=== PATIENT | male | born 1960 | race Caucasian/White ===

== ENCOUNTER 2021-06-20 13:48 | Outpatient (CLI) | payer BC ==
[2021-06-20 14:32] LABS: #Basophils 0.1 10x3/uL (0.0-0.2); #Eosinphils 0.4 10x3/uL (0.0-0.5); #Monocytes 0.8 10x3/uL (0.0-1.1); #Neutrophils 4.3 10x3/uL (1.5-8.4); %Basophils 1.4 % (0.0-2.0); %Eosinophils 4.4 % (0.0-6.0); %Lymphocytes 34.5 % (18.0-47.0); %Monocytes 9.3 % (0.0-10.0); %Neutrophils 49.9 % (40.0-75.0); Hemoglobin 15.9 g/dL (13.5-17.5); Mean Corpuscular HGB CONC 32.9 g/dL (32.0-36.0); Mean Corpuscular Hemoglobin 30.8 pg (27.0-33.0); Mean Corpuscular Volume 93.6 fl (81.2-95.1); Mean Platelet Volume 9.6 fl (7.4-10.4); Platelet Count 273 10x3/uL (150-450); Red Blood Cell (RBC) Count 5.17 10x6/uL (4.32-5.72); White Blood Cell (WBC) Count 8.5 10x3/uL (3.5-10.5)
[2021-06-20 15:10] LABS: Anion Gap 13 mmol/L (10-20); BUN (Urea Nitrogen) 17 mg/dL (8.4-25.7); Calc. Creatinine Clearance 0 mL/min (70-130); Calcium 9.9 mg/dL (7.8-10.44); Carbon Dioxide 29 mmol/L (22-29); Chloride 104 mmol/L (98-107); Glucose 108 mg/dL (70-105); Potassium 4.7 mmol/L (3.5-5.1); Sodium 141 mmol/L (136-145)
[2021-06-20 23:50] LABS: SARS-CoV-2 PCR by NAA Not Detected (NotDetected)
== END 2021-06-20 13:49 | disposition home or self-care (01) ==
LOC: LABBT 13:48
PROVIDERS: ATTEND Orthopaedic Surgery
DX: Z01.818 Encounter for other preprocedural examination (principal); M17.11 Unilateral primary osteoarthritis, right knee; Z20.822 Contact with and (suspected) exposure to COVID-19
CPT/HCPCS: 80048; 85025; 87081; 93005; 93010; U0003; U0005

== ENCOUNTER 2021-06-25 06:29 | Day surgery (SDC) | payer BC ==
[2021-06-14 13:02] VITALS: BMI 26.5
[2021-06-25] MEDS ORDERED: Sodium Chloride 0.9% 100 ML ONE (07:17)
[2021-06-25] MEDS ORDERED: Tranexamic Acid 1,000 MG/10 ML VIAL ONE (07:17)
[2021-06-25] MEDS ORDERED: Vancomycin 1.5 GRAM/300 ML BAG 1.5 GM in Premix Bag 1 BAG IVPB SCH (07:30)
[2021-06-25] MEDS ORDERED: Midazolam HCl 2 mg/2 ml Vial ONE (08:17)
[2021-06-25] MEDS ORDERED: Fentanyl 100 MCG/2 ML VIAL ONE ×5 (08:17→12:55)
[2021-06-25] MEDS ORDERED: Lidocaine 1% (PF) 30 ML VIAL ONE (08:18)
[2021-06-25] MEDS ORDERED: Promethazine HCl 25 MG/ML VIAL IM PRN ×2 (08:54→10:15)
[2021-06-25] MEDS ORDERED: Zolpidem Tartrate 5 MG TAB PO PRN ×2 (08:54→10:15)
[2021-06-25] MEDS ORDERED: Acetaminophen 325 MG TAB PO PRN (08:54)
[2021-06-25] MEDS ORDERED: Ondansetron PF 4 MG/2 ML Vial IVP PRN ×2 (08:54→10:15)
[2021-06-25] MEDS ORDERED: HYDROcodone/Acetaminophen 10/325 mg Tablet PO PRN ×4 (08:54→10:15)
[2021-06-25] MEDS ORDERED: diphenhydrAMINE 25 MG CAP PO PRN (08:54)
[2021-06-25] MEDS ORDERED: Bupivacaine PF 0.5% 30 ML VIAL ONE (08:56)
[2021-06-25] MEDS ORDERED: ceFAZolin 2 GM/Dextrose 50 ML IVPB ONE (09:11)
[2021-06-25] MEDS ORDERED: PROPOFOL 200 MG/20 ML VIAL ONE (09:24)
[2021-06-25] MEDS ORDERED: Ketorolac Tromethamine 30 MG/ML VIAL ONE (09:24)
[2021-06-25] MEDS ORDERED: Lidocaine 1% PF 5 ML VIAL ONE (09:24)
[2021-06-25] MEDS ORDERED: Ondansetron PF 4 MG/2 ML Vial ONE (09:24)
[2021-06-25] MEDS ORDERED: Bupivacaine HCl 0.5%/Epinephrine 1:200,000/PF 30 ml Vial ONE (09:24)
[2021-06-25] MEDS ORDERED: Labetalol HCl 100 MG/20 ML VIAL ONE (09:24)
[2021-06-25] MEDS ORDERED: Fentanyl 100 MCG/2 ML VIAL IV PRN (10:09)
[2021-06-25] MEDS ORDERED: Ropivacaine 0.2% 550 ML 550 ML NERVE BLCK SCH (10:15)
[2021-06-25] MEDS ORDERED: traMADol HCl 50 MG TAB PO PRN ×2 (10:15)
[2021-06-25] MEDS ORDERED: Ondansetron HCl/PF 4 MG/2 ML Vial IVP PRN (11:17)
[2021-06-25] MEDS ORDERED: hydrALAZINE 20 MG/ML VIAL ONE (11:55)
[2021-06-25] MEDS ORDERED: ceFAZolin 2 GM/Dextrose 50 ML 2 GM in Premix Bag 1 BAG IVPB SCH ×2 (14:00→18:00)
[2021-06-25] MEDS ORDERED: Ketorolac Tromethamine 30 MG/ML VIAL IVP SCH (14:00)
[2021-06-25] MEDS ORDERED: HYDROcodone/Acetaminophen 10/325 mg Tablet ONE (14:18)
[2021-06-25] MEDS: Ferrous Gluconate 324 MG TAB PO SCH ×2 (17:41→20:39)
[2021-06-25] MEDS: Senokot S 8.6-50 MG TAB PO SCH ×2 (17:41→20:39)
[2021-06-25] MEDS: Multivitamin W/ Minerals 1 TAB PO SCH (17:41)
[2021-06-25] MEDS: Aspirin 81 mg Enteric Coated Tablet PO SCH ×2 (17:41→20:38)
[2021-06-25] MEDS: Ketorolac Tromethamine 30 MG/ML VIAL IVP SCH ×3 (17:41→23:38)
[2021-06-25] MEDS: Sodium Chloride 0.9% 1,000 ML IV SCH ×2 (17:41→20:38)
[2021-06-25] MEDS: HYDROcodone/Acetaminophen 10/325 mg Tablet PO PRN (18:29)
[2021-06-25] MEDS: ceFAZolin 2 GM/Dextrose 50 ML 2 GM in Premix Bag 1 BAG IVPB SCH (20:38)
[2021-06-26] MEDS: Sodium Chloride 0.9% 1,000 ML IV SCH (05:36)
[2021-06-26] MEDS: Ketorolac Tromethamine 30 MG/ML VIAL IVP SCH ×2 (05:38→11:39)
[2021-06-26] MEDS: HYDROcodone/Acetaminophen 10/325 mg Tablet PO PRN ×2 (05:46→09:24)
[2021-06-26 06:30] LABS: Hemoglobin 13.2 g/dL (14.0-18.0); Mean Corpuscular Hemoglobin 31.7 pg (27.0-31.0); Mean Corpuscular Volume 96.2 fL (78.0-98.0); Mean Platelet Volume 7.5 fL (7.4-10.4); Platelet Count 215 thou/uL (130-400); RBC Distribution Width 11.4 % (11.5-14.5); Red Blood Cell (RBC) Count 4.17 mill/uL (4.70-6.10); White Blood Cell (WBC) Count 12.1 thou/uL (4.8-10.8)
[2021-06-26 08:08] VITALS: BP 125/57; TEMP 97.4
[2021-06-26] MEDS: ceFAZolin 2 GM/Dextrose 50 ML 2 GM in Premix Bag 1 BAG IVPB SCH (09:21)
[2021-06-26] MEDS: Aspirin 81 mg Enteric Coated Tablet PO SCH (09:21)
[2021-06-26] MEDS: Senokot S 8.6-50 MG TAB PO SCH (09:21)
[2021-06-26] MEDS: Ferrous Gluconate 324 MG TAB PO SCH (09:21)
[2021-06-26] MEDS: Multivitamin W/ Minerals 1 TAB PO SCH (09:21)
== END 2021-06-26 12:59 | disposition home or self-care (01) ==
LOC: SDC 06:29 → SURG A 08:55 → SDC 06-26 12:59
PROVIDERS: ATTEND Orthopaedic Surgery
PROC: 3E0T3BZ Introduction of Anesthetic Agent into Peripheral Nerves and Plexi, Percutaneous Approach (ICD-10-PCS; principal; 2021-06-25)
PROC: 8E0YXBZ Computer Assisted Procedure of Lower Extremity (ICD-10-PCS; principal; 2021-06-25)
PROC: 0SRC0J9 Replacement of Right Knee Joint with Synthetic Substitute, Cemented, Open Approach (ICD-10-PCS; principal; 2021-06-25)
DX: M17.31 Unilateral post-traumatic osteoarthritis, right knee (principal); Z88.5 Allergy status to narcotic agent; Z98.890 Other specified postprocedural states
CPT/HCPCS: 36415; 85027; A4306; C1713; C1776; J0360; J0690; J1885; J2001; J2250; J2405; J2704; J2795; J3010; J3370; J3490; S0020